=== PATIENT | male | born 1940 | race Caucasian/White ===

== ENCOUNTER 2023-04-09 16:14 | Inpatient (IN) ==
--- NOTE | 2023-04-09 16:37 | Emergency Department Note ---
Impression & Plan Heart block, Elevated troponin I level ED Provider Note NAME: CRISTÓBAL STEVENS AGE: 83 SEX: M : 1940 ARRIVES VIA: Ambulance INFORMANT: Patient, ED PROVIDER(S): Clifton Rich DO CHIEF COMPLAINT: Dizziness HPI: The patient is an 83-year-old male who presented to the emergency department by ambulance from the [facility]. The patient went there for his acupuncture. He was noted to have a low pulse rate. They did a EKG at the office and found him to be in a heart block. The patient was sent to the emergency department by ambulance. He has no previous history of heart block. Patient states he has noticed some dizziness and difficulty breathing upon walking. He denies having any lower extremity swelling or chest pain. He denies having any rashes or changes to his medications. ROS: See above HPI for pertinent positives & negatives. A total of 10 systems reviewed and were otherwise negative. PAST MEDICAL HISTORY: See Below PAST SURGICAL HISTORY: See Below FAMILY HISTORY: See Below SOCIAL HISTORY: See Below HOME MEDICATIONS: See Below ALLERGIES: See Below VITALS: See Below PHYSICAL EXAMINATION: GENERAL: Patient is awake alert in no acute distress patient is resting comfortably and showing no signs of anxiety EYES: The conjunctivae are clear. The pupils are round and reactive. EARS, NOSE, MOUTH AND THROAT: The nose is without any evidence of any deformity. NECK: The neck is nontender and supple. RESPIRATORY: Normal respiratory effort is noted there is no evidence of wheezing rhonchi or rales CARDIOVASCULAR: Bradycardic and regular heart sounds were noted auscultation. There is no definite murmur. GASTROINTESTINAL: The abdomen is soft. Abdomen is nontender. MUSCULOSKELETAL/EXTREMITIES: There is no evidence of gross deformity full range of motion is noted in the hips and shoulders. SKIN: There is no obvious evidence of any rash. There are no petechiae, pallor or cyanosis noted. NEUROLOGIC: Patient is awake alert and oriented x3 MEDICAL DECISION MAKING: The patient is an 83-year-old male who presented to the emergency department with asymptomatic bradycardia. The patient presented to the [facility] for acupuncture therapy. He was noted to have bradycardia. In EKG was done and was found to be abnormal. The patient was sent to the emergency department by ambulance. The patient had no chest pain but he did have some weakness and dizziness upon standing. I discussed the patient's laboratory and radiographic studies with him. I discussed his condition with the on-call [facility] hospitalist as well as the on-call [facility] teradata solution architect. The patient may require further workup including echocardiogram as well as possible consideration for pacemaker placement. Triage Nursing notes reviewed. Prior medical records reviewed Vital Signs: reviewed and remarkable for bradycardia. Differential diagnosis: Infection, dehydration, metabolic abnormality, hypo/hyperglycemia, electrolyte disturbance, anemia, hypoxia, cardiac sources, intracerebral event, toxicologic, neurologic, as well as other pathologies. ER treatment provided: See below Diagnostics interpreted by me: ECG: EKG was obtained in the emergency department. My interpretation is complete heart block at 42 bpm. Right bundle branch block pattern was noted. This compares similar to the EKG obtained [facility]. [facility] from the [facility] was reviewed. My interpretation is complete heart block at 42 bpm. A right bundle branch block pattern was noted. PVCs. No previous tracing was available. Cardiac Monitoring: An order was placed for continuous cardiac monitoring. The monitor shows a rate of 43 bpm with heart block. Laboratory studies: As stated above and show below. Imaging studies: See below. Radiographic imaging was reviewed by myself Consultation(s): I discussed this case with Dr Wright I discussed this case with Dr Padron ED COURSE: Transcutaneous pacer pads were attached in the crash cart was placed at the patient's bedside. Procedures: none Critical Care: I have personally spent greater than 45 minutes of critical care time in the direct management of this patient. This includes bedside care, interpretation of diagnostic studies, and testing, discussion with consultants, patient, and family members, and other required patient management activities. This 45 minutes is in excess of all separately billable procedures. Past Med/Surg History Medical History Low back pain Osteoporosis HTN (hypertension), benign BPH (benign prostatic hyperplasia) Cystitis SBO (small bowel obstruction) Surgical History Status post laser lithotripsy of ureteral calculus H/O inguinal hernia repair Family History Mother Diabetes Father Cancer Sister Coronary heart disease Social History (Reviewed 04/09/23 @ 21:12 by INDY Leyva Smoking Status: Former smoker Tobacco Type: Cigarettes Smoking End Date: 1970; Do You Dip or Chew Tobacco: No; Hx Alcohol Use: No Hx Substance Use: No Preferred Language: German Communication Ability: Effective 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 Beliefs That Will Affect Care: None Current Living Situation: Significant Other Feels Safe at Home: Yes Assistive Devices: Glasses and Hearing Aid - Bilateral Assistive Devices Comment: partials upper and lower Allergies Allergies Allergy/AdvReac Type Severity Reaction Status Date / Time No Known Allergies Allergy Verified 04/09/23 17:38 Home Meds Home Medications Medication Instructions Recorded Confirmed cholecalciferol (vitamin D3) 25 25 mcg PO DAILY 04/09/23 04/09/23 mcg (1,000 unit) capsule (Vitamin D3) diclofenac sodium 1 % topical gel 2 g topical DIRECTED PRN Pain 04/09/23 04/09/23 ferrous sulfate 325 mg (65 mg 325 mg PO DAILY 04/09/23 04/09/23 iron) tablet finasteride 5 mg tablet 5 mg PO DAILY 04/09/23 04/09/23 folic acid 1 mg tablet 1 mg PO DAILY 04/09/23 04/09/23 lidocaine 5 % topical ointment 1 applic topical DIRECTED PRN 04/09/23 04/09/23 Pain lidocaine 5 % topical patch 1 patch transdermal DAILY PRN Pain 04/09/23 04/09/23 oxybutynin chloride 15 mg 15 mg PO DAILY 04/09/23 04/09/23 tablet,extended release 24 hr potassium citrate 10 mEq (1,080 10 meq PO DAILY 04/09/23 04/09/23 mg) tablet,extended release tamsulosin 0.4 mg capsule 0.4 mg PO DAILY 04/09/23 04/09/23 Results & Data (ED) Vital Signs Vital Signs - 24 hr 04/09/23 16:55 04/09/23 16:57 04/09/23 17:00 Temperature 36.8 C Temperature Source Oral Pulse Rate 42 L 40 L 42 L Pulse Rate from SpO2 Sensor 41 L Respiratory Rate 14 16 Respiratory Effort / Characteristics Non-Labored Spontaneous Respiratory Depth Normal Blood Pressure 147/76 H 147/76 H Blood Pressure Mean 99 99 Pulse Oximetry 97 98 Oxygen Delivery Method Room Air Sepsis Recent Fever Within 48 Hours No Sepsis New/Unexplained Change in Mental Status No Sepsis Action Taken by Nursing No Action Required 04/09/23 17:00 Temperature Temperature Source Pulse Rate 41 L Pulse Rate from SpO2 Sensor 42 L Respiratory Rate 24 Respiratory Effort / Characteristics Respiratory Depth Blood Pressure Blood Pressure Mean Pulse Oximetry 97 Oxygen Delivery Method Sepsis Recent Fever Within 48 Hours Sepsis New/Unexplained Change in Mental Status Sepsis Action Taken by Group Home Medications Current Medication List: was personally reviewed by me Laboratory Data Attestation: I reviewed the patient's lab results. 04/09/23 16:47 04/09/23 16:47 Lab Results 04/09/23 Range/Units 16:47 WBC 7.41 (4.8-10.8) K/ul RBC 3.61 L (4.70-6.10) M/uL Hgb 11.6 L (14.0-18.0) g/dl Hct 36.1 L (42.0-52.0) % MCV 100.0 (80.0-100.0) fL MCH 32.1 (25.0-34.0) pg MCHC 32.1 (32.0-36.0) g/dL RDW Std Deviation 50.1 H (36.4-46.3) fL RDW Coeff of Ana María 13.4 (11.5-14.5) % Plt Count 116 L (130-400) K/uL MPV 11.1 (9.4-12.4) fL Immature Gran % (Auto) 0.4 % Neut % (Auto) 77.0 % Lymph % (Auto) 10.1 % [place] % (Auto) 9.9 % Eos % (Auto) 1.9 % Baso % (Auto) 0.7 % Neut # (Auto) 5.71 (1.40-6.50) K/uL Lymph # (Auto) 0.75 L (1.20-3.40) K/uL [place] # (Auto) 0.73 H (0.11-0.59) K/uL Eos # (Auto) 0.14 (0.00-0.50) K/uL Baso # (Auto) 0.05 (0.00-0.20) K/uL Immature Gran # (Auto) 0.03 (0.01-0.20) K/uL PT 10.9 (9.0-12.0) Seconds INR 1.0 (0.9-1.1) APTT 25 (21-31) Seconds PTT Ratio 0.9 Sodium 139 (136-145) mmol/L Potassium 4.1 (3.5-5.1) mmol/L Chloride 108 H (98-107) mmol/L Carbon Dioxide 26 (21-32) mmol/L Anion Gap 5 (3-11) BUN 32 H (6-23) mg/dl Creatinine 1.43 H (0.6-1.4) mg/dl Est Cr Clr Drug Dosing 38.4 ml/min Est GFR ( Amer) 52.1 ml/min Est GFR (Non-Af Amer) 45.0 ml/min BUN/Creatinine Ratio 22.4 H (10-20) Glucose 115 H (70-99(Fasting)) mg/dl Calcium 9.4 (8.6-10.3) mg/dl Magnesium 1.9 (1.7-2.4) mg/dl Total Bilirubin 0.5 (0.2-1.0) mg/dl AST 19 (13-39) U/L ALT 15 (7-52) U/L Alkaline Phosphatase 67 (34-104) U/L Troponin I High Sens 231.6 H* (0-20) pg/ml Total Protein 6.8 (6.0-8.3) gm/dl Albumin 4.0 (3.4-5.0) gm/dl Globulin 2.8 (2.5-4.0) gm/dl Albumin/Globulin Ratio 1.4 (0.9-2) TSH 2.912 (0.300-4.500) uIu/ml Lyme Disease Screen Negative (Negative) Imaging Data Attestation: I personally reviewed and interpreted this imaging study as follows: My Impression: 1 view chest x-ray was obtained in the emergency department. My interpretation is no free air or definite infiltrate, final report below. Radiologist's Impression: Chest X-Ray 04/09/23 16:35 SINGLE VIEW CHEST CLINICAL HISTORY: Dysrhythmia FINDINGS: An AP, portable, upright chest radiograph is obtained. No prior studies are available for comparison at the time of dictation. The heart is enlarged and noting atherosclerotic calcification of the thoracic aorta. The pulmonary vasculature is noncongested. Nonspecific interstitial thickening is likely chronic. Foci of parenchymal scarring are seen throughout both lungs. There are indeterminant foci of nodularity in the left perihilar lung and left upper lobe. No large pleural effusion or pneumothorax is seen. The skeletal structures are osteopenic. The bony thorax is grossly intact. IMPRESSION: 1. Cardiomegaly without radiographic evidence of congestive failure. 2. Indeterminate nodular airspace opacities in the left upper lung are nonspecific. This could represent scarring/fibrosis, a mild pneumonitis, or possibly an underlying pulmonary lesion. Clinical correlation will be required. Follow-up with a dedicated chest CT in several weeks time is recommended for reassessment. ACT 112: Positive. There are findings on this exam that require communication between the performing entity and the patient following Patient Test Result Information Act ([place] Act 112) guidelines. Electronically signed by: Paul Guerrero M.D. 04/09/2023 5:07 PM Discharge Plan Visit Data Chief Complaint: Bradycardia Stated Complaint: BRADYCARDIA ED Provider: Clifton Rich Discharge Problem: Heart block, Elevated troponin I level Patient Disposition: Admitted As Inpatient Discharge Instructions Interventions: ED Discharge Assessment Last Done: 04/09/23 17:54
--- NOTE | 2023-04-09 17:09 | XRay Report ---
SINGLE VIEW CHEST CLINICAL HISTORY: Dysrhythmia FINDINGS: An AP, portable, upright chest radiograph is obtained. No prior studies are available for c omparison at the time of dictation. The heart is enlarged and noting atherosclerotic calcification of the thoracic aorta. The pulmonary vasculature is noncongested. Nonspecific interstitial thickening i s likely chronic. Foci of parenchymal scarring are seen throughout both lungs. There are indeterminan t foci of nodularity in the left perihilar lung and left upper lobe. No large pleural effusion or pne umothorax is seen. The skeletal structures are osteopenic. The bony thorax is grossly intact. IMPRESSION: 1. Cardiomegaly without radiographic evidence of congestive failure. 2. Indeterminate nodular airspace opacities in the left upper lung are nonspecific. This could repres ent scarring/fibrosis, a mild pneumonitis, or possibly an underlying pulmonary lesion. Clinical corre lation will be required. Follow-up with a dedicated chest CT in several weeks time is recommended for reassessment. ACT 112: Positive. There are findings on this exam that require communication between the performing entity and the patient following Patient Test Result Information Act ([place] Act 112) guidelines. Electronically signed by: Paul Guerrero M.D. 04/09/2023 5:07 PM
[2023-04-09 17:12] LABS: Basophils # (auto) 0.05 K/uL (0.00-0.20); Basophils % (auto) 0.7 %; Eosinophils # (auto) 0.14 K/uL (0.00-0.50); Eosinophils % (auto) 1.9 %; Hematocrit (blood only) 36.1 % (42.0-52.0); Hemoglobin 11.6 g/dl (14.0-18.0); Immature Granulocytes # (auto) 0.03 K/uL (0.01-0.20); Immature Granulocytes % (auto) 0.4 %; Lymphocytes # (auto) 0.75 K/uL (1.20-3.40); Lymphocytes % (auto) 10.1 %; Mean Corpuscular Hemoglobin 32.1 pg (25.0-34.0); Mean Corpuscular Hgb Conc 32.1 g/dL (32.0-36.0); Mean Platelet Volume 11.1 fL (9.4-12.4); Monocytes # (auto) 0.73 K/uL (0.11-0.59); Monocytes % (auto) 9.9 %; Neutrophils # (auto) 5.71 K/uL (1.40-6.50); Platelet Count 116 K/uL (130-400); RDW Coefficient of Variation 13.4 % (11.5-14.5); RDW Standard Deviation 50.1 fL (36.4-46.3); Red Blood Count 3.61 M/uL (4.70-6.10); White Blood Count 7.41 K/ul (4.8-10.8)
[2023-04-09] MEDS ORDERED: POLYETHYLENE (MIRALAX) 17 GM PACK PO PRN (17:28)
[2023-04-09 17:30] LABS: Albumin Globulin Ratio 1.4 (0.9-2); BUN Creatinine Ratio 22.4 (10-20); Bilirubin,Total 0.5 mg/dl (0.2-1.0); Calcium 9.4 mg/dl (8.6-10.3); Creatinine Clr Calc Pharmacy 38.4 ml/min; Est GFR (African American) 52.1 ml/min; Globulin 2.8 gm/dl (2.5-4.0); Magnesium 1.9 mg/dl (1.7-2.4); Potassium 4.1 mmol/L (3.5-5.1); Total Protein 6.8 gm/dl (6.0-8.3)
[2023-04-09 17:36] LABS: Troponin I High Sensitivity 231.6 pg/ml (0-20)
[2023-04-09 17:38] LABS: Partial Thromboplastin Ratio 0.9; Partial Thromboplastin Time 25 Seconds (21-31); Prothrombin Time 10.9 Seconds (9.0-12.0)
[2023-04-09] MEDS ORDERED: Patient's ALLERGY Info needs ENTERED STA (17:38)
[2023-04-09 17:43] LABS: Thyroid Stimulating Hormone 2.912 uIu/ml (0.300-4.500)
--- NOTE | 2023-04-09 17:46 | History & Physical Report ---
Date of Service April 09, 2023 Assessment & Plan (1) Heart block: Plan: - reports dizziness, dyspnea on exertion/ walking - complete heart block on ECG - Lyme panel - negative - pacer pads, atropine at bedside - telemetry - cardiology consulted, poss. PPM tmrw - NPO after MN (2) HTN (hypertension), benign: Plan: - not on any medications at this time - monitor BP (3) BPH (benign prostatic hyperplasia): Plan: - on flomax, finasteride, oxybutynin (4) Low back pain: Plan: - cont. lidocain patch, tylenol - just had acupuncture treatment Iron def. anemia - current Hgb 11.6 - on iron supplement Abnormal CXR - no cough, fever, or any resp. symptoms at this time - pt reports having pna and being in ICU in 2017 after his urologic procedure - follows w/ pulmonary med. as outpt History of Present Illness Chief Complaint: heart block, dizziness Primary Care Provider: [facility] 83 yo M with hx of HTN, BPH, renal calculi, osteoporosis, low back pain, hx of SBO, and cystitis, now presents from [facility] where he was found to be in complete heart block. Patient was seen in [facility] for acupuncture, for his chronic low back pain today. He reports that for the past week, has been having dizziness and shortness of breath on exertion when walking or going up the stairs. He says he is very active, and walks regularly. He would get dizzy and flushed several times, and so he would have to stop and rest, then it would resolve. He says he never experienced any chest pain however after walking up the stairs he would feel some fullness in his chest. He felt that it was possibly from his anemia, as he is known to have iron deficiency anemia. He did contact his primary care physician, and actually obtained blood work yesterday. He has not heard back yet from them regarding results. When he was at the [facility] for acupuncture, he was noted that his pulse was low, and therefore ECG was obtained there, and concerning for heart block. Patient was then sent by ambulance to the ER at [facility]. Currently patient is lying in bed, in no acute distress. Overall he feels well. Denies any chest pain palpitations, feeling dizzy or short of breath. Denies any recent illness, denies fevers chills, denies any cough. Denies abdominal pain nausea vomiting, or headache. Allergies Allergy/AdvReac Type Severity Reaction Status Date / Time No Known Allergies Allergy Verified 04/09/23 17:38 Home Medications Medication Instructions Recorded Confirmed Type cholecalciferol (vitamin D3) 25 25 mcg PO DAILY 04/09/23 04/09/23 History mcg (1,000 unit) capsule (Vitamin D3) diclofenac sodium 1 % topical gel 2 g topical DIRECTED PRN Pain 04/09/23 04/09/23 History ferrous sulfate 325 mg (65 mg 325 mg PO DAILY 04/09/23 04/09/23 History iron) tablet finasteride 5 mg tablet 5 mg PO DAILY 04/09/23 04/09/23 History folic acid 1 mg tablet 1 mg PO DAILY 04/09/23 04/09/23 History lidocaine 5 % topical ointment 1 applic topical DIRECTED PRN 04/09/23 04/09/23 History Pain lidocaine 5 % topical patch 1 patch transdermal DAILY PRN Pain 04/09/23 04/09/23 History oxybutynin chloride 15 mg 15 mg PO DAILY 04/09/23 04/09/23 History tablet,extended release 24 hr potassium citrate 10 mEq (1,080 10 meq PO DAILY 04/09/23 04/09/23 History mg) tablet,extended release tamsulosin 0.4 mg capsule 0.4 mg PO DAILY 04/09/23 04/09/23 History Past Med/Surg History Medical History (Updated 04/09/23 @ 17:41 by Kaden Padron MD) Low back pain Osteoporosis HTN (hypertension), benign BPH (benign prostatic hyperplasia) Cystitis SBO (small bowel obstruction) Surgical History (Updated 04/09/23 @ 17:37 by Kaden Padron MD) Status post laser lithotripsy of ureteral calculus H/O inguinal hernia repair Family History (Updated 04/09/23 @ 17:39 by Kaden Padron MD) Mother Diabetes Father Cancer Sister Coronary heart disease Social History Smoking Status: Never smoker Feels Safe at Home: Yes Review of Systems Review of Systems: All systems reviewed & are unremarkable except as noted in Subjective Physical Exam Constitutional: WD/WN, vitals as above Eyes: PERRL, conjunctivae normal, anicteric sclerae ENMT: external ear and nose normal, oropharynx normal Neck: trachea midline, no thyromegaly Respiratory: Auscultation: + rhonchi; no wheezes Cardiovascular: bradycardic, no murmurs Chest (Breasts): Chest: normal inspection of chest Additional Comments: pacer pads applied Gastrointestinal (Abdomen): normal bowel sounds, soft, nontender, no hepatosplenomegaly Musculoskeletal: no cyanosis or clubbing, extremities motor strength 5/5 Skin: no rashes, warm and dry Neurologic: PERRL, EOMI, accommodation nl, no face palsy, no dysarthria Psychiatric: A+Ox3, euthymic affect Lymphatic: no lymphedema Results & Data Results & Data Vital Signs (Past 12 Hours) Vital Signs Temp Pulse Resp BP Pulse Ox O2 Del Method 04/09/23 17:00 41 L 24 97 04/09/23 17:00 36.8 C 42 L 16 147/76 H 98 Room Air 04/09/23 16:57 40 L 04/09/23 16:55 42 L 14 147/76 H 97 Laboratory Results 04/09/23 Range/Units 16:47 WBC 7.41 (4.8-10.8) K/ul RBC 3.61 L (4.70-6.10) M/uL Hgb 11.6 L (14.0-18.0) g/dl Hct 36.1 L (42.0-52.0) % MCV 100.0 (80.0-100.0) fL MCH 32.1 (25.0-34.0) pg MCHC 32.1 (32.0-36.0) g/dL RDW Std Deviation 50.1 H (36.4-46.3) fL RDW Coeff of Ana María 13.4 (11.5-14.5) % Plt Count 116 L (130-400) K/uL MPV 11.1 (9.4-12.4) fL Immature Gran % (Auto) 0.4 % Neut % (Auto) 77.0 % Lymph % (Auto) 10.1 % [place] % (Auto) 9.9 % Eos % (Auto) 1.9 % Baso % (Auto) 0.7 % Neut # (Auto) 5.71 (1.40-6.50) K/uL Lymph # (Auto) 0.75 L (1.20-3.40) K/uL [place] # (Auto) 0.73 H (0.11-0.59) K/uL Eos # (Auto) 0.14 (0.00-0.50) K/uL Baso # (Auto) 0.05 (0.00-0.20) K/uL Immature Gran # (Auto) 0.03 (0.01-0.20) K/uL PT 10.9 (9.0-12.0) Seconds INR 1.0 (0.9-1.1) APTT 25 (21-31) Seconds PTT Ratio 0.9 Sodium 139 (136-145) mmol/L Potassium 4.1 (3.5-5.1) mmol/L Chloride 108 H (98-107) mmol/L Carbon Dioxide 26 (21-32) mmol/L Anion Gap 5 (3-11) BUN 32 H (6-23) mg/dl Creatinine 1.43 H (0.6-1.4) mg/dl Est Cr Clr Drug Dosing 38.4 ml/min Est GFR ( Amer) 52.1 ml/min Est GFR (Non-Af Amer) 45.0 ml/min BUN/Creatinine Ratio 22.4 H (10-20) Glucose 115 H (70-99(Fasting)) mg/dl Calcium 9.4 (8.6-10.3) mg/dl Magnesium 1.9 (1.7-2.4) mg/dl Total Bilirubin 0.5 (0.2-1.0) mg/dl AST 19 (13-39) U/L ALT 15 (7-52) U/L Alkaline Phosphatase 67 (34-104) U/L Troponin I High Sens 231.6 H* (0-20) pg/ml Total Protein 6.8 (6.0-8.3) gm/dl Albumin 4.0 (3.4-5.0) gm/dl Globulin 2.8 (2.5-4.0) gm/dl Albumin/Globulin Ratio 1.4 (0.9-2) TSH Pending Lyme Disease Screen Pending Diagnostic Findings CXR MPRESSION: 1. Cardiomegaly without radiographic evidence of congestive failure. 2. Indeterminate nodular airspace opacities in the left upper lung are nonspecific. This could represent scarring/fibrosis, a mild pneumonitis, or possibly an underlying pulmonary lesion. Clinical correlation will be required. Follow-up with a dedicated chest CT in several weeks time is recommended for reassessment. ECG - complete heart block, at 42bpm Code Status & VTE Plan VTE Prophylaxis Plan VTE Prophylaxis will be ordered: Yes
[2023-04-09] MEDS ORDERED: LIDOCAINE 5% 1 PATCH TD PRN (19:12)
--- NOTE | 2023-04-09 21:06 | Cardiology Consultation ---
Date of Consultation April 09, 2023 Assessment & Plan (1) Third degree heart block by electrocardiogram: (2) HTN (hypertension), benign: (3) Renal insufficiency: Plan Patient is hemodynamically stable. Recommend permanent pacemaker implantation in AM. Risks discussed. Patient agreeable. Temporary transvenous pacemaker not necessary at this time. Transcutaneous pacer pads to bedside. 2D transthoracic echocardiogram in AM. NPO except medications after midnight. I spent a total of 55 minutes on the date of service in preparation, delivery, and documentation of the care provided to this patient, excluding any time spent in the performance of separately billed services. History of Present Illness Reason for Consultation: Heart block Requesting Physician: Dr. Padron Attending Physician: Kaden Padron MD History of Present Illness 83 year old male presented to [place] clinic today for acupuncture for treatment of chronic low back pain. Sent to ER because of bradycardia. Reports dizziness beginning 1 week ago while walking outdoors. Symptoms relieved with rest. +SOB and dizziness when climbing stairs at home. Denies resting symptoms. No orthopnea, PND, or edema. No history of CAD, CHF, dysrhythmia, DM, or rheumatic fever as a child. Generally a very active person. Walking regularly for exercise until symptoms began last week. Allergies Allergy/AdvReac Type Severity Reaction Status Date / Time No Known Allergies Allergy Verified 04/09/23 17:38 Home Medications Medication Instructions Recorded Confirmed Type cholecalciferol (vitamin D3) 25 25 mcg PO DAILY 04/09/23 04/09/23 History mcg (1,000 unit) capsule (Vitamin D3) diclofenac sodium 1 % topical gel 2 g topical DIRECTED PRN Pain 04/09/23 04/09/23 History ferrous sulfate 325 mg (65 mg 325 mg PO DAILY 04/09/23 04/09/23 History iron) tablet finasteride 5 mg tablet 5 mg PO DAILY 04/09/23 04/09/23 History folic acid 1 mg tablet 1 mg PO DAILY 04/09/23 04/09/23 History lidocaine 5 % topical ointment 1 applic topical DIRECTED PRN 04/09/23 04/09/23 History Pain lidocaine 5 % topical patch 1 patch transdermal DAILY PRN Pain 04/09/23 04/09/23 History oxybutynin chloride 15 mg 15 mg PO DAILY 04/09/23 04/09/23 History tablet,extended release 24 hr potassium citrate 10 mEq (1,080 10 meq PO DAILY 04/09/23 04/09/23 History mg) tablet,extended release tamsulosin 0.4 mg capsule 0.4 mg PO DAILY 04/09/23 04/09/23 History Patient History Medical History Low back pain Osteoporosis HTN (hypertension), benign BPH (benign prostatic hyperplasia) Cystitis SBO (small bowel obstruction) Surgical History Status post laser lithotripsy of ureteral calculus H/O inguinal hernia repair Family History Mother Diabetes Father Cancer Sister Coronary heart disease Social History Smoking Status: Former smoker Tobacco Type: Cigarettes Smoking End Date: 1970; Do You Dip or Chew Tobacco: No; Hx Alcohol Use: No Hx Substance Use: No Preferred Language: Slovak Communication Ability: Effective Market Development Director Required: No Beliefs That Will Affect Care: None Current Living Situation: Significant Other Feels Safe at Home: Yes Assistive Devices: Glasses and Hearing Aid - Bilateral Assistive Devices Comment: partials upper and lower Review of Systems Review of Systems: All systems reviewed & are unremarkable except as noted in Subjective Physical Exam Constitutional: well nourished; no acute distress Respiratory: normal respiratory effort; no respiratory distress and no labored breathing Auscultation: lungs clear to auscultation bilaterally; no crackles, no rales, no rhonchi and no wheezes Cardiovascular: Rate/Rhythm: regular rate and regular rhythm Heart Sounds: normal S1, normal S2 and + murmur (2/6 systolic murmur at LSB) Vessels: radial pulses present; no JVD and no carotid bruit Extremities: no edema Gastrointestinal (Abdomen): Inspection/Auscultation: abdomen normal to inspection and normal bowel sounds; abdomen not distended Percussion/Palpation: abdomen soft; abdomen nontender, no guarding and abdomen not rigid Neurologic: CN's II-XI intact bilaterally and moves all extremities; no focal motor deficits Results & Data Vital Signs (Past 12 Hours) Vital Signs Temp Pulse Resp BP Pulse Ox O2 Del Method 04/09/23 19:30 44 L 22 139/64 96 04/09/23 19:00 41 L 22 97 04/09/23 19:00 145/66 H 04/09/23 18:30 43 L 16 95 04/09/23 18:01 40 L 23 97 04/09/23 18:01 153/62 H 04/09/23 18:00 43 L 12 98 04/09/23 17:31 48 L 12 04/09/23 17:31 157/71 H 04/09/23 17:30 45 L 14 04/09/23 17:28 95 Room Air 04/09/23 17:00 41 L 24 97 04/09/23 17:00 36.8 C 42 L 16 147/76 H 98 Room Air 04/09/23 16:57 40 L 04/09/23 16:55 42 L 14 147/76 H 97 Laboratory Results Cardiac Enzymes 04/09/23 04/09/23 Range/Units 16:47 18:50 AST 19 (13-39) U/L Troponin I High Sens 231.6 H* 253.1 H* (0-20) pg/ml Coagulation 04/09/23 Range/Units 16:47 PT 10.9 (9.0-12.0) Seconds APTT 25 (21-31) Seconds CBC 04/09/23 Range/Units 16:47 WBC 7.41 (4.8-10.8) K/ul RBC 3.61 L (4.70-6.10) M/uL Hgb 11.6 L (14.0-18.0) g/dl Hct 36.1 L (42.0-52.0) % Plt Count 116 L (130-400) K/uL Neut # (Auto) 5.71 (1.40-6.50) K/uL Lymph # (Auto) 0.75 L (1.20-3.40) K/uL [place] # (Auto) 0.73 H (0.11-0.59) K/uL Eos # (Auto) 0.14 (0.00-0.50) K/uL Baso # (Auto) 0.05 (0.00-0.20) K/uL Comprehensive Metabolic Panel 04/09/23 Range/Units 16:47 Sodium 139 (136-145) mmol/L Potassium 4.1 (3.5-5.1) mmol/L Chloride 108 H (98-107) mmol/L Carbon Dioxide 26 (21-32) mmol/L BUN 32 H (6-23) mg/dl Creatinine 1.43 H (0.6-1.4) mg/dl Glucose 115 H (70-99(Fasting)) mg/dl Calcium 9.4 (8.6-10.3) mg/dl AST 19 (13-39) U/L ALT 15 (7-52) U/L Alkaline Phosphatase 67 (34-104) U/L Total Protein 6.8 (6.0-8.3) gm/dl Albumin 4.0 (3.4-5.0) gm/dl Intake and Output 04/09/23 04/09/23 04/09/23 06:59 14:59 22:59 Other: Weight 69.4 kg Weight Measurement Method Built in [facility] Patient Weight 04/10/23 06:59 Weight 69.4 kg
[2023-04-10 04:37] LABS: BUN Creatinine Ratio 22.1 (10-20); Calcium 9.1 mg/dl (8.6-10.3); Creatinine Clr Calc Pharmacy 40.4 ml/min; Est GFR (African American) 55.4 ml/min; Est GFR (Non-African American) 47.8 ml/min; Magnesium 1.9 mg/dl (1.7-2.4); Potassium 4.3 mmol/L (3.5-5.1)
[2023-04-10 04:45] LABS: Hematocrit (blood only) 34.4 % (42.0-52.0); Hemoglobin 10.8 g/dl (14.0-18.0); Mean Corpuscular Hemoglobin 32.1 pg (25.0-34.0); Mean Corpuscular Hgb Conc 31.4 g/dL (32.0-36.0); Mean Corpuscular Volume 102.4 fL (80.0-100.0); Mean Platelet Volume 11.2 fL (9.4-12.4); Platelet Count 98 K/uL (130-400); Platelet Estimate Decreased (Normal); RDW Coefficient of Variation 13.5 % (11.5-14.5); RDW Standard Deviation 50.5 fL (36.4-46.3); Red Blood Count 3.36 M/uL (4.70-6.10); White Blood Count 6.71 K/ul (4.8-10.8)
--- NOTE | 2023-04-10 07:46 | History & Physical Bridge Note ---
Date of Service April 10, 2023 History & Physical Bridge Note I have examined the patient, reviewed the History & Physical and in the interval since the performance of the History & Physical I have noted the following changes of clinical significance: no changes noted; pt with CHB for a dual chamber pacemaker; i explained the risks and benefits of the procedure-he expressed an understanding and consents signed
--- NOTE | 2023-04-10 07:46 | Hospitalist Progress Note ---
Date of Service April 10, 2023 Assessment & Plan (1) Heart block: Plan: - reports dizziness, dyspnea on exertion/ walking - complete heart block on ECG - Lyme panel - negative - Cardiology consulted, s/p PPM today 83-year-old male with symptomatic third-degree AV block status post dual-chamber pacemaker implantation today. Recovering as expected without pneumothorax per chest x-ray. Postprocedural activity restrictions as per electrophysiology. Patient understands he may not drive today. Review resting 2D transthoracic echocardiogram when available. No further inpatient cardiac testing or intervention recommended at this time. Wound check and pacemaker interrogation in 1 week at [facility]. Follow-up with primary care or pulmonary medicine regarding pulmonary nodules. No further inpatient cardiac testing or intervention recommended at this time. Patient may be discharged home from cardiovascular perspective. (2) HTN (hypertension), benign: Plan: - not on any medications at this time - monitor BP (3) BPH (benign prostatic hyperplasia): Plan: - on flomax, finasteride, oxybutynin (4) Low back pain: Plan: - cont. lidocain patch, tylenol - just had acupuncture treatment Iron def. anemia - current Hgb 11.6 - on iron supplement Abnormal CXR - no cough, fever, or any resp. symptoms at this time - pt reports having pna and being in ICU in 2017 after his urologic procedure - follows w/ pulmonary med. as outpt - recommend follow up Admission and Anticipated Discharge Date Admission Date: April 09, 2023 Subjective Pt seen in follow up of heart block, s/p pacemaker placement this AM Patient is currently sitting up in chair, in no acute distress. His girlfriend is present at the bedside. He was just walking in the hallways with the nurse. Denies any chest pain shortness of breath palpitations or dizziness. He is feeling well. But the he has some shoulder pain from the procedure. Review of Systems Review of Systems: All systems reviewed & are unremarkable except as noted in Subjective Physical Exam Physical Exam: Constitutional: WD/WN, vitals as a ruperto Eyes: PERRL, conjunctiva e normal, anicteri c sclerae ENMT: external ear and n ose normal, oropha rynx normal Neck: trachea midline, n o thyromegaly Respiratory: Auscultation: + rh onchi; no wheezes Cardiovascular: bradycardic, no m urmurs Chest (Breasts): Chest: normal insp ection of chest A dditional Comments : s/p PPM placeme nt today Gastrointestinal ( Abdomen): normal bowel sound s, soft, nontender Musculoskeletal: no cyanosis or clu bbing, extremities motor strength 5/ 5 Skin: no rashes, warm an d dry Neurologic: PERRL, EOMI, no fa ce palsy, no dysar thria Psychiatric: A+Ox3, euthymic af fect Lymphatic: no lymphedema Results & Data Results & Data Vital Signs (Past 12 Hours) Vital Signs Temp Pulse Resp BP Pulse Ox O2 Del Method 04/10/23 07:25 43 L 18 124/66 96 Room Air 04/09/23 21:21 36.6 C 43 L 16 131/78 91 Room Air Laboratory Results 04/10/23 04/09/23 04/09/23 Range/Units 03:39 Unknown 18:50 WBC 6.71 (4.8-10.8) K/ul RBC 3.36 L (4.70-6.10) M/uL Hgb 10.8 L (14.0-18.0) g/dl Hct 34.4 L (42.0-52.0) % MCV 102.4 H (80.0-100.0) fL MCH 32.1 (25.0-34.0) pg MCHC 31.4 L (32.0-36.0) g/dL RDW Std Deviation 50.5 H (36.4-46.3) fL RDW Coeff of Ana María 13.5 (11.5-14.5) % Plt Count 98 L (130-400) K/uL MPV 11.2 (9.4-12.4) fL Immature Gran % (Auto) % Neut % (Auto) % Lymph % (Auto) % [place] % (Auto) % Eos % (Auto) % Baso % (Auto) % Neut # (Auto) (1.40-6.50) K/uL Lymph # (Auto) (1.20-3.40) K/uL [place] # (Auto) (0.11-0.59) K/uL Eos # (Auto) (0.00-0.50) K/uL Baso # (Auto) (0.00-0.20) K/uL Immature Gran # (Auto) (0.01-0.20) K/uL Platelet Estimate Decreased L (Normal) PT (9.0-12.0) Seconds INR (0.9-1.1) APTT (21-31) Seconds PTT Ratio Sodium 140 (136-145) mmol/L Potassium 4.3 (3.5-5.1) mmol/L Chloride 109 H (98-107) mmol/L Carbon Dioxide 25 (21-32) mmol/L Anion Gap 6 (3-11) BUN 30 H (6-23) mg/dl Creatinine 1.36 (0.6-1.4) mg/dl Est Cr Clr Drug Dosing 40.4 ml/min Est GFR ( Amer) 55.4 ml/min Est GFR (Non-Af Amer) 47.8 ml/min BUN/Creatinine Ratio 22.1 H (10-20) Glucose 103 H (70-99(Fasting)) mg/dl Calcium 9.1 (8.6-10.3) mg/dl Phosphorus 4.0 (2.5-4.9) mg/dl Magnesium 1.9 (1.7-2.4) mg/dl Total Bilirubin (0.2-1.0) mg/dl AST (13-39) U/L ALT (7-52) U/L Alkaline Phosphatase (34-104) U/L Troponin I High Sens 253.1 H* (0-20) pg/ml Total Protein (6.0-8.3) gm/dl Albumin (3.4-5.0) gm/dl Globulin (2.5-4.0) gm/dl Albumin/Globulin Ratio (0.9-2) TSH (0.300-4.500) uIu/ml Nasal Screen MRSA (PCR) Negative (Negative) Lyme Disease Screen (Negative) 04/09/23 Range/Units 16:47 WBC 7.41 (4.8-10.8) K/ul RBC 3.61 L (4.70-6.10) M/uL Hgb 11.6 L (14.0-18.0) g/dl Hct 36.1 L (42.0-52.0) % MCV 100.0 (80.0-100.0) fL MCH 32.1 (25.0-34.0) pg MCHC 32.1 (32.0-36.0) g/dL RDW Std Deviation 50.1 H (36.4-46.3) fL RDW Coeff of Ana María 13.4 (11.5-14.5) % Plt Count 116 L (130-400) K/uL MPV 11.1 (9.4-12.4) fL Immature Gran % (Auto) 0.4 % Neut % (Auto) 77.0 % Lymph % (Auto) 10.1 % [place] % (Auto) 9.9 % Eos % (Auto) 1.9 % Baso % (Auto) 0.7 % Neut # (Auto) 5.71 (1.40-6.50) K/uL Lymph # (Auto) 0.75 L (1.20-3.40) K/uL [place] # (Auto) 0.73 H (0.11-0.59) K/uL Eos # (Auto) 0.14 (0.00-0.50) K/uL Baso # (Auto) 0.05 (0.00-0.20) K/uL Immature Gran # (Auto) 0.03 (0.01-0.20) K/uL Platelet Estimate (Normal) PT 10.9 (9.0-12.0) Seconds INR 1.0 (0.9-1.1) APTT 25 (21-31) Seconds PTT Ratio 0.9 Sodium 139 (136-145) mmol/L Potassium 4.1 (3.5-5.1) mmol/L Chloride 108 H (98-107) mmol/L Carbon Dioxide 26 (21-32) mmol/L Anion Gap 5 (3-11) BUN 32 H (6-23) mg/dl Creatinine 1.43 H (0.6-1.4) mg/dl Est Cr Clr Drug Dosing 38.4 ml/min Est GFR ( Amer) 52.1 ml/min Est GFR (Non-Af Amer) 45.0 ml/min BUN/Creatinine Ratio 22.4 H (10-20) Glucose 115 H (70-99(Fasting)) mg/dl Calcium 9.4 (8.6-10.3) mg/dl Phosphorus (2.5-4.9) mg/dl Magnesium 1.9 (1.7-2.4) mg/dl Total Bilirubin 0.5 (0.2-1.0) mg/dl AST 19 (13-39) U/L ALT 15 (7-52) U/L Alkaline Phosphatase 67 (34-104) U/L Troponin I High Sens 231.6 H* (0-20) pg/ml Total Protein 6.8 (6.0-8.3) gm/dl Albumin 4.0 (3.4-5.0) gm/dl Globulin 2.8 (2.5-4.0) gm/dl Albumin/Globulin Ratio 1.4 (0.9-2) TSH 2.912 (0.300-4.500) uIu/ml Nasal Screen MRSA (PCR) (Negative) Lyme Disease Screen Negative (Negative) Medications Administered Current Inpatient Medications Acetaminophen (Acetaminophen 325 Mg Tab) 650 mg PO Q4H PRN PRN Reason: Pain or Fever Stop: 05/09/23 17:27 Finasteride (Finasteride 5 Mg Tab) 5 mg PO DAILY LITA Stop: 05/10/23 08:59 Folic Acid (Folic Acid 1 Mg Tab) 1 mg PO DAILY LITA Stop: 05/10/23 08:59 Lidocaine (Lidocaine 5% 1 Patch) 1 patch TD DAILY PRN PRN Reason: Pain Stop: 05/09/23 19:11 Miscellaneous (Remove Lidoderm Patch) 1 each N/A DAILY@2100 LITA Stop: 05/09/23 20:59 Last Admin: 04/09/23 22:36 Dose: 1 each Oxybutynin Chloride (Oxybutynin Chloride Xl 5 Mg Tabcr) 15 mg PO DAILY LITA Stop: 05/10/23 08:59 Polyethylene Glycol (Polyethylene (Miralax) 17 Gm Pack) 17 gm PO DAILY PRN PRN Reason: Constipation Stop: 05/09/23 17:27
--- NOTE | 2023-04-10 07:47 | Pre Anesthesia Assessment ---
Date of Service April 10, 2023 Pre Sedation Assessment Vital Signs Temp Pulse Pulse Resp BP BP Pulse Ox 04/10/23 07:25 43 L 18 124/66 96 04/09/23 21:21 36.6 C 43 L 16 131/78 91 04/09/23 19:30 44 L 22 139/64 96 04/09/23 19:00 41 L 22 97 04/09/23 19:00 145/66 H 04/09/23 18:30 43 L 16 95 04/09/23 18:01 40 L 23 97 04/09/23 18:01 153/62 H 04/09/23 18:00 43 L 12 98 04/09/23 17:31 48 L 12 04/09/23 17:31 157/71 H 04/09/23 17:30 45 L 14 04/09/23 17:28 95 04/09/23 17:00 41 L 24 97 04/09/23 17:00 36.8 C 42 L 16 147/76 H 98 04/09/23 16:57 40 L 04/09/23 16:55 42 L 14 147/76 H 97 O2 Del Method 04/10/23 07:25 Room Air 04/09/23 21:21 Room Air 04/09/23 19:30 04/09/23 19:00 04/09/23 19:00 04/09/23 18:30 04/09/23 18:01 04/09/23 18:01 04/09/23 18:00 04/09/23 17:31 04/09/23 17:31 04/09/23 17:30 04/09/23 17:28 Room Air 04/09/23 17:00 04/09/23 17:00 Room Air 04/09/23 16:57 04/09/23 16:55 Cardiovascular + bradycardic Respiratory normal respiratory effort, lungs clear to auscultation Pre-Sedation Airway Assessment Smoking Status: Former smoker Hx Sleep Apnea: No Short, Thick Neck: No Thyromental Distance: > or= 3.5 Finger Breadths Oral Cavity: + WNL Mallampati Class: II ASA: ASA2 NPO Status Date of Last Intake of Fluids: 04/09/23 Time of Last Intake of Fluids: 22:00 Date of Last Intake of Solid Food: 04/09/23 Time of Last Intake of Solid Foods: 22:00 Procedure Planning Contraindications for Sedation: none Current Medications Reviewed: Yes Notes The planned sedation has been discussed with the patient. Informed Consent was obtained. I have identified the patient, determined the appropriateness of sedation and have assessed the patient immediately prior to the procedure. All medicine(s) and interventions are by my order.
[2023-04-10] MEDS: WATER, STERILE FOR INJ 10 ML VIAL ONE (09:16)
[2023-04-10] MEDS: VANCOMYCIN HCL 1000MG/20ML VIAL ONE (09:16)
[2023-04-10] MEDS: BUPIVACAINE 0.25% PF 30 ML VIAL ONE (09:16)
[2023-04-10] MEDS: LIDOCAINE 1% LOCAL 20 ML VIAL ONE (09:16)
[2023-04-10] MEDS: MIDAZOLAM HCL 5 MG/ML 1 ML VIAL ONE (09:17)
[2023-04-10] MEDS: fentaNYL citrate PF 100 MCG/2 ML VIAL ONE (09:17)
[2023-04-10] MEDS: NITROGLYCERIN/D5W 100MCG/ML 20ML SYR ONE (09:17)
[2023-04-10] MEDS: ceFAZolin 330 MG/ML 1 GM VIAL ONE (09:17)
[2023-04-10 11:13] LABS: Appearance Urine Clear (Clear); Bacteria Urine Automated Negative (Negative); Bilirubin Urine Negative (Negative); Blood Urine 3+ (Negative); Color Urine Yellow; Epithelial Cell Urine Auto 20-30 /lpf (0-5); Glucose Urine UA Negative (Negative); Ketones Urine Negative (Negative); Leukocyte Esterase Urine 1+ (Negative); Nitrite Urine Negative (Negative); Protein Urine Negative (Negative); RBC Urine Automated >30 /hpf (0-4); Specific Gravity Urine 1.033 (1.000-1.030); Urobilinogen Urine Negative (Negative); WBC Urine Automated >30 /hpf (0-5); pH Urine 5.5 (4.5-7.5)
[2023-04-10] MEDS: FOLIC ACID 1 MG TAB PO SCH (11:23)
[2023-04-10] MEDS: OXYBUTYNIN CHLORIDE XL 5 MG TABCR PO SCH (11:23)
[2023-04-10] MEDS: FINASTERIDE 5 MG TAB PO SCH (11:23)
--- NOTE | 2023-04-10 11:51 | Electrocardiogram Report ---
Test Reason : Blood Pressure : / mmHG Vent. Rate : 042 BPM Atrial Rate : 042 BPM P-R Int : 000 ms QRS Dur : 154 ms QT Int : 470 ms P-R-T Axes : 040 -26 002 degrees QTc Int : 392 ms Normal sinus rhythm with A-V dissociation and Wide QRS rhythm Right bundle branch block Minimal voltage criteria for LVH, may be normal variant ( R in aVL ) Abnormal ECG No previous ECGs available Confirmed by Clifton Narayanan ([id number]) on 04/10/2023 11:51:25 AM Referred By: [facility] Confirmed By:Clifton Narayanan
--- NOTE | 2023-04-10 12:25 | XRay Report ---
SINGLE VIEW CHEST CLINICAL HISTORY: Pacemaker implantation FINDINGS: An AP, portable, upright chest radiograph is compared to study dated 04/09/2023. The examina tion is degraded by portable technique and patient rotation. Surgical clips project over the lower ne ck. A 2-lead cardiac pacemaker has been placed and largely obscures the left upper chest. Leads proje ct over the right atrial appendage and right ventricle. The heart is enlarged and noting atheroscler otic calcification of the thoracic aorta. The pulmonary vasculature is noncongested. Nonspecific inte rstitial thickening is likely chronic. Foci of parenchymal scarring are seen throughout both lungs. T here are indeterminant foci of nodularity in the left perihilar lung and left upper lobe. No large pl eural effusion or pneumothorax is seen. The skeletal structures are osteopenic. The bony thorax is gr ossly intact. IMPRESSION: 1. A 2-lead cardiac pacemaker has been implanted as above. No pneumothorax is identified post procedu re. 2. Cardiomegaly without radiographic evidence of congestive failure. 3. The pacemaker obscures the left upper lobe nodular opacities seen on yesterday's examination. Foll ow-up with a dedicated chest CT in several weeks time is again recommended for reassessment. ACT 112: Negative or not required by law. Electronically signed by: Paul Guerrero M.D. 04/10/2023 12:23 PM
--- NOTE | 2023-04-10 12:58 | Electrocardiogram Report ---
Test Reason : Blood Pressure : / mmHG Vent. Rate : 071 BPM Atrial Rate : 071 BPM P-R Int : 162 ms QRS Dur : 160 ms QT Int : 438 ms P-R-T Axes : 057 124 083 degrees QTc Int : 475 ms Atrial-sensed ventricular-paced rhythm Abnormal ECG When compared with ECG of 10-APR-2023 06:25, Electronic ventricular pacemaker now present Vent. rate has increased BY 24 BPM Confirmed by Jey Sheets ([id number]) on 04/10/2023 12:58:40 PM Referred By: [facility] Confirmed By:Jey Sheets
--- NOTE | 2023-04-10 13:01 | Cardiology Progress Note ---
Date of Service April 10, 2023 Assessment & Plan (1) Third degree heart block by electrocardiogram: (2) Pacemaker: (3) HTN (hypertension), benign: (4) Renal insufficiency: (5) Pulmonary nodule: Plan 83-year-old male with symptomatic third-degree AV block status post dual-chamber pacemaker implantation today. Recovering as expected without pneumothorax per chest x-ray. Postprocedural activity restrictions as per electrophysiology. Patient understands he may not drive today. Review resting 2D transthoracic echocardiogram when available. No further inpatient cardiac testing or intervention recommended at this time. Wound check and pacemaker interrogation in 1 week at [facility]. Follow-up with primary care or pulmonary medicine regarding pulmonary nodules. No further inpatient cardiac testing or intervention recommended at this time. Patient may be discharged home from cardiovascular perspective. Recommendations discussed with hospitalist via [place] text for continuity of care. I spent a total of 30 minutes on the date of service in preparation, delivery, and documentation of the care provided to this patient, excluding any time spent in the performance of separately billed services. Admission and Anticipated Discharge Date Admission Date: April 09, 2023 Subjective Patient seen and examined at the bedside post pacemaker implantation. Feeling well from a cardiovascular perspective. Notes left shoulder soreness. Telemetry reveals atrial sensed ventricular paced rhythm. Denies chest discomfort or heaviness. No shortness of breath, lightheadedness, or dizziness. Chest x-ray without evidence of pneumothorax. Left upper lobe pulmonary nodules noted. Review of Systems Review of Systems: All systems reviewed & are unremarkable except as noted in Subjective Physical Exam Constitutional: well nourished; no acute distress Respiratory: normal respiratory effort; no respiratory distress and no labored breathing Auscultation: lungs clear to auscultation bilaterally; no crackles, no rales, no rhonchi and no wheezes Cardiovascular: Rate/Rhythm: regular rate and regular rhythm Heart Sounds: normal S1, normal S2 and + murmur (2/6 systolic murmur at LSB) Vessels: radial pulses present; no JVD and no carotid bruit Extremities: no edema Gastrointestinal (Abdomen): Inspection/Auscultation: abdomen normal to inspection and normal bowel sounds; abdomen not distended Percussion/Palpation: abdomen soft; abdomen nontender, no guarding and abdomen not rigid Neurologic: CN's II-XI intact bilaterally and moves all extremities; no focal motor deficits Results & Data Vital Signs (Past 12 Hours) Vital Signs Pulse Pulse Resp BP BP Pulse Ox O2 Del Method 04/10/23 11:15 80 22 98 04/10/23 11:15 157/86 H 04/10/23 11:00 72 26 H 98 04/10/23 11:00 148/87 H 04/10/23 10:46 153/86 H 04/10/23 10:46 73 19 96 04/10/23 10:45 73 18 89 L 04/10/23 10:33 74 19 96 04/10/23 10:33 164/87 H 04/10/23 10:30 70 19 04/10/23 09:45 76 20 135/78 94 Room Air 04/10/23 09:40 73 20 146/63 H 94 Room Air 04/10/23 07:25 43 L 18 124/66 96 Room Air Laboratory Results Cardiac Enzymes 04/09/23 04/09/23 Range/Units 16:47 18:50 AST 19 (13-39) U/L Troponin I High Sens 231.6 H* 253.1 H* (0-20) pg/ml Coagulation 04/09/23 Range/Units 16:47 PT 10.9 (9.0-12.0) Seconds APTT 25 (21-31) Seconds CBC 04/09/23 04/10/23 Range/Units 16:47 03:39 WBC 7.41 6.71 (4.8-10.8) K/ul RBC 3.61 L 3.36 L (4.70-6.10) M/uL Hgb 11.6 L 10.8 L (14.0-18.0) g/dl Hct 36.1 L 34.4 L (42.0-52.0) % Plt Count 116 L 98 L (130-400) K/uL Neut # (Auto) 5.71 (1.40-6.50) K/uL Lymph # (Auto) 0.75 L (1.20-3.40) K/uL [place] # (Auto) 0.73 H (0.11-0.59) K/uL Eos # (Auto) 0.14 (0.00-0.50) K/uL Baso # (Auto) 0.05 (0.00-0.20) K/uL Comprehensive Metabolic Panel 04/09/23 04/10/23 Range/Units 16:47 03:39 Sodium 139 140 (136-145) mmol/L Potassium 4.1 4.3 (3.5-5.1) mmol/L Chloride 108 H 109 H (98-107) mmol/L Carbon Dioxide 26 25 (21-32) mmol/L BUN 32 H 30 H (6-23) mg/dl Creatinine 1.43 H 1.36 (0.6-1.4) mg/dl Glucose 115 H 103 H (70-99(Fasting)) mg/dl Calcium 9.4 9.1 (8.6-10.3) mg/dl AST 19 (13-39) U/L ALT 15 (7-52) U/L Alkaline Phosphatase 67 (34-104) U/L Total Protein 6.8 (6.0-8.3) gm/dl Albumin 4.0 (3.4-5.0) gm/dl Intake and Output 04/09/23 04/10/23 04/10/23 22:59 06:59 14:59 Intake Total 120 / 120 0 / 120 100 / 100 Output Total 200 / 700 500 / 700 125 / 125 Balance -80 / -580 -500 / -580 -25 / -25 Intake: Oral 120 / 120 0 / 120 100 / 100 Output: Urine 200 / 700 500 / 700 125 / 125 Other: Weight 69.4 kg 68.8 kg Weight Measurement Method Built in [facility] Built in [facility]
--- NOTE | 2023-04-10 15:11 | Discharge Summary ---
Date of Service April 10, 2023 Admission HPI Per Admitting Provider 83 yo M with hx of HTN, BPH, renal calculi, osteoporosis, low back pain, hx of SBO, and cystitis, now presents from [facility] where he was found to be in complete heart block. Patient was seen in [facility] for acupuncture, for his chronic low back pain today. He reports that for the past week, has been having dizziness and shortness of breath on exertion when walking or going up the stairs. He says he is very active, and walks regularly. He would get dizzy and flushed several times, and so he would have to stop and rest, then it would resolve. He says he never experienced any chest pain however after walking up the stairs he would feel some fullness in his chest. He felt that it was possibly from his anemia, as he is known to have iron deficiency anemia. He did contact his primary care physician, and actually obtained blood work yesterday. He has not heard back yet from them regarding results. When he was at the [facility] for acupuncture, he was noted that his pulse was low, and therefore ECG was obtained there, and concerning for heart block. Patient was then sent by ambulance to the ER at [facility]. Currently patient is lying in bed, in no acute distress. Overall he feels well. Denies any chest pain palpitations, feeling dizzy or short of breath. Denies any recent illness, denies fevers chills, denies any cough. Denies abdominal pain nausea vomiting, or headache. Admission Exam Per Admitting Provider Constitutional: WD/WN, vitals as above Eyes: PERRL, conjunctivae normal, anicteric sclerae ENMT: external ear and nose normal, oropharynx normal Neck: trachea midline, no thyromegaly Respiratory: Auscultation: + rhonchi; no wheezes Cardiovascular: bradycardic, no murmurs Chest (Breasts): Chest: normal inspection of chest Additional Comments: pacer pads applied Gastrointestinal (Abdomen): normal bowel sounds, soft, nontender Musculoskeletal: extremities motor strength 5/5 Skin: no rashes, warm and dry Neurologic: PERRL, EOMI, no face palsy, no dysarthria, moves extremities Psychiatric: A+Ox3, euthymic affect Lymphatic: no lymphedema Principal Diagnosis Heart block s/p pacemaker placement Discharge Exam Constitutional: WD/WN, vitals as above Eyes: PERRL, conjunctivae normal, anicteric sclerae ENMT: external ear and nose normal, oropharynx normal Neck: trachea midline, no thyromegaly Respiratory: Auscultation: + rhonchi; no wheezes Cardiovascular: bradycardic, no murmurs Chest (Breasts): Chest: normal inspection of chest Additional Comments: s/p PPM placement today Gastrointestinal (Abdomen): normal bowel sounds, soft, nontender Musculoskeletal: no cyanosis or clubbing, extremities motor strength 5/5 Skin: no rashes, warm and dry Neurologic: PERRL, EOMI, no face palsy, no dysarthria Psychiatric: A+Ox3, euthymic affect Lymphatic: no lymphedema Discharge Data Allergies Allergy/AdvReac Type Severity Reaction Status Date / Time No Known Allergies Allergy Verified 04/09/23 17:38 Consultations 04/09/23 17:25 ED Decision to Admit Stat 04/09/23 17:27 Consult Cardiology Routine Procedures Performed Operation Date: 04/10/23 08:00 Actual Procedures p Pacer with A/V Leads (Dual) - Kirti Armendariz DO s Venogram, Unilateral - Kirti Armendariz DO s Bundle of his Recording - Kirti Armendariz DO Ordered Studies 04/10/23 07:00 EP Lab Images for PACS ONCE Hospital Course (1) Heart block: - reports dizziness, dyspnea on exertion/ walking - complete heart block on ECG - Lyme panel - negative - Cardiology consulted, s/p PPM today 83-year-old male with symptomatic third-degree AV block status post dual-chamber pacemaker implantation today. Recovering as expected without pneumothorax per chest x-ray. Postprocedural activity restrictions as per electrophysiology. Patient understands he may not drive today. Review resting 2D transthoracic echocardiogram when available. No further inpatient cardiac testing or intervention recommended at this time. Wound check and pacemaker interrogation in [address] [facility]. Follow-up with primary care or pulmonary medicine regarding pulmonary nodules. No further inpatient cardiac testing or intervention recommended at this time. Patient may be discharged home from cardiovascular perspective. (2) HTN (hypertension), benign: - not on any medications at this time - monitor BP (3) BPH (benign prostatic hyperplasia): - on flomax, finasteride, oxybutynin (4) Low back pain: - cont. lidocain patch, tylenol - just had acupuncture treatment Iron def. anemia - current Hgb 11.6 - on iron supplement Abnormal CXR - no cough, fever, or any resp. symptoms at this time - pt reports having pna and being in ICU in 2017 after his urologic procedure - follows w/ pulmonary med. as outpt - recommend follow up Total Time Total Time Spent Total Time Spent (In Minutes): 40 Discharge Plan Discharge Items Patient Disposition: Home - Self-Care Reason For Visit: HEART BLOCK Discharge Diagnosis: Heart block s/p pacemaker placement Activity: As commented below Activity Comment: do not raise the left elbow over the left shoulder for 1 month Lifting: No more than 10 pounds Lifting Comment: do not lift more than 10 pounds with the left arm for 2 weeks Bathing: Keep incision dry Bathing Comment: keep dressing on & dry until wound check next week Driving/Machine Use: Resume 1 day after discharge Non-emergency contact: Primary Care Provider and Streetsweeper Operator Call non-emergency contact if: you have any medication questions and your symptoms worsen Follow-up/Referrals: Kirti Armendariz DO [Physician] - (Date & Time 04/20/2023 10:30 AM Provider Roland Frost Department Cardiology, [place] ) [facility] [Primary Care Provider] - Diet: Regular Addtl Attending Provider Instructions: Follow up with your primary care physician and cardiology. Follow up with your primary care doctor within 1-2 weeks. Device and wound check at [facility] on 04/20/2023 at 10:30am. It is also recommended that you follow up with your preflight inspector regarding pulmonary nodules/ pulmonary scarring. Pending Studies at Discharge: Yes Studies:: final urine cultx Stand-Alone Forms: My Event [employer], Smoking Cessation Medications and DC Order Prescriptions: Continued oxybutynin chloride 15 mg tablet extended release 24hr 15 mg PO DAILY tamsulosin 0.4 mg capsule 0.4 mg PO DAILY potassium citrate 10 mEq (1,080 mg) tablet extended release 10 meq PO DAILY ferrous sulfate 325 mg (65 mg iron) Tablet 325 mg PO DAILY lidocaine 5 % adhesive patch,medicated 1 patch transdermal DAILY PRN (Reason: Pain) folic acid 1 mg Tablet 1 mg PO DAILY finasteride 5 mg tablet 5 mg PO DAILY cholecalciferol (vitamin D3) [Vitamin D3] 25 mcg (1,000 unit) Capsule 25 mcg PO DAILY diclofenac sodium 1 % gel 2 g TOPICAL DIRECTED PRN (Reason: Pain) lidocaine 5 % ointment 1 applic topical DIRECTED PRN (Reason: Pain) Discharge Orders: Discharge Order (Routine); Ordered 04/10/23 Ordered By: Kaden Meek/Other Patient Handouts: Pacemakers, Living with a Pacemaker Admission Data Admit Date/Time: 04/09/23 17:28 Attending Provider: Kaden Padron Admit Provider: Kaden Padron Primary Care Provider: [facility] Other Providers: Kaden Padron; Tavon Wright
[2023-04-10] MEDS: ACETAMINOPHEN 325 MG TAB PO PRN (15:40)
--- OUTSIDE RECORDS SUMMARY | 2023-04-11 03:48 | External Medical Summary | Summary of Care ---
Author Name Unknown Organization [facility] Address [address] [facility] [place] [address] Phone [phone] Care Team Providers Care Verifying Machine Operator Name Role Phone Rj Fitch MD Primary Care Provider [phone] Reason for Visit * Reason Onset Date Comments Specimen Urine 10/27/2022 Encounter Details Date Type Department Care Team Description 10/27/2022 Telephone [facility] [address] [place] [address] Devika Acevedo PA-C [address] [place] [address] Specimen Urine Allergies No known active allergiesdocumented as of this encounter (statuses as of 10/27/2022) Medications Medication Sig Dispensed Refills Start Date End Date Status tamsulosin (FLOMAX) 0.4 MG Capsule daily. 0 Active finasteride (PROSCAR) 5 MG Tablet daily. 0 Active potassium citrate ER (UROCIT-K) 10 MEQ (1080 MG) TBCR daily. 0 Active Vitamin D, Cholecalciferol, 400 units CAPSIndications:2 tabs daily Indications: 2 tabs daily 0 Active ferrous sulfate (FEOSOL) 325 (65 FE) MG TabletIndications:t wice daily 2 Tablets daily with breakfast . 0 Active folic acid 1 MG Tablet daily. 0 Active Ascorbic Acid (VITAMIN C) 100 MG Tablet Take 100 mg by mouth daily. 0 Active loperamide (IMODIUM) 2 MG Capsule as needed. 0 01/25/2019 Active acetaminophen (TYLENOL) 500 MG Tablet Take 500 mg by mouth every 6 hours as needed for Pain. 0 Active Naproxen 500 MG Oral Tablet (NAPROSYN) Take 500 mg by mouth 2 times a day with morning and evening meals. 0 Active traMADol HCl 50 MG Oral Tablet (Ultram) Take by mouth 50 mg every 6 hours as needed for Pain, Mild. Last dose 2300 on 06/09/21 0 Active Gabapentin 300 MG Oral Capsule (Neurontin) Take by mouth 300 mg in the morning AND 300 mg at noon AND 300 mg before bedtime. 0 Active Lactobacillus Probiotic Oral Tablet Take by mouth 1 Tablet daily . 0 Active Sildenafil Citrate 100 MG Oral Tablet Take by mouth 100 mg daily as needed . 0 03/20/2020 Active Clotrimazole 1 % External Cream (Lotrimin) Apply topically to affected area 1 Dose daily as needed . 0 05/22/2021 Active Triamcinolone Acetonide 0.1 % External Cream (Aristocort) Apply topically to affected area 1 Dose daily as needed . 0 05/21/2021 Active hydroCHLOROthiazide 25 MG Oral Tablet (Hydrodiuril) Take by mouth 12.5 mg in the morning. 0 05/16/2021 Active Ciprofloxacin HCl 500 MG Oral Tablet (Cipro)Indications: Dysuria,Acute cystitis with hematuria Take 1 Tablet by mouth in the morning and 1 Tablet before bedtime. Do all this for 10 days. 20 Tablet 0 10/24/2022 11/03/2022 Active documented as of this encounter (statuses as of 10/27/2022) Active Problems Problem Noted Date Small bowel obstruction 06/11/2021 Hypertension 06/11/2021 Low back pain 06/11/2021 Osteoporosis 06/11/2021 BPH (benign prostatic hyperplasia) 05/20 Acute cystitis without hematuria 021 documented as of this encounter (statuses as of 10/27/2022) Resolved Problems Problem Noted Date Resolved Date Bilateral inguinal hernia without obstruction or gangrene 02/18/2019 03/08/2019 documented as of this encounter (statuses as of 10/27/2022) Immunizations Name Administration Dates Next Due COVID-19 mRNA, LNP-s, No Pre serve, 2-Dose Series (Moderna) 12/17/2020,03/20/2020,02/22/2020 H1N1 2009 Influenza, IM 03/12/2009 Pneumococcal Conjugate Vacc, 13 Valent (Prevnar) 12/13/2014 Pneumococcal Polysaccharide PPV23 (Pneumovax) 02/11/2018 Seasonal Influenza Virus Vac cine, Unspecified Formulation 12/09/2017,10/10/2009,11/10/2007,11/09 Seasonal Influenza, Quadriva lent, No Preserve, IM 11/20/2020,12/02/2019 Seasonal Influenza, Split, I IV3, With Preserve, Inj 11/24/2018,12/02/2017,11/10/2016,11/26,12/13/2014 TD - Tetanus/Diptheria (ADULT) 02/09/2002 TDAP (age 10 and older)(Boostrix) 12/07/2015 Varicella Zoster Vaccine (Adult) 06/11/2011 Zoster Vaccine Recombinant (Shingrix) 04/12/2018 ,02/11/2018 documented as of this encounter Social History Tobacco Use Types Packs/Day Years Used Date Smoking Tobacco: Never Smokeless Tobacco: Never Alcohol Use Standard Drinks/Week Comments Yes 0 (1 standard drink = 0.6 oz pur e alcohol) monthly Sex Assigned at Date Recorded Not on file Job Start Date Occupation Industry Not on file Not on file Not on file documented as of this encounter Functional Status Functional Status Response Date of Assess ment Are you deaf or do you have serious difficulty h earing? No 06/10/2021 Are you blind or do you have serious difficulty seeing, even when wearing glasses? No 06/10/2021 Do you have serious difficul ty walking or climbing stairs? (5 years old or older) No 06/10/2021 Do you have difficulty dress ing or bathing? (5 years old or older) No 06/10/2021 Because of a physical, menta l, or emotional condition, do you have difficulty doing errands alone such as visiting a doctor s office or shopping? (15 years old or older) No 06/11/19 Cognitive Status Response Date of Assessm ent Because of a physical, menta l, or emotional condition, do you have serious difficulty concentrating, remembering, or making decisions? (5 years old or older No 06/10/2021 documented as of this encounter Miscellaneous Notes * Telephone Encounter - Devika M Acevedo, PA-C - 10/27/2022 1:13 PM EDT Urine culture was negative. Patient should follow up with his urologist as needed. documented in this encounter Plan of Treatment Scheduled Procedures Name Priority Associated Diagnoses Date/Ti me COLONOSCOPY FLEXIBLE PROXIMA L DIAGNOSTIC Recall History of colonic polyps Health Maintenance Due Date Last Done Comments Depression Screening 1952 Albumin/Creatinine Ratio 1958 VITAMIN D LEVEL ONCE IN A LIFETIME-USE SMARTSET# 53986 1980 DXA Scan 1990 COVID-19 Vaccine (4 - Moderna series) 02/11/2021 12/17/2020, 03/20/2020, 02/22/2020 *BISPHONATE OR OTHER ACCEPTABLE MEDICATION NEEDED FOR OSTEOPOROSIS (REFER TO SMARTSET #1146) 06/14/2021 COLONOSCOPY-EVERY 5 YRS AGES 18-100 01/30/2022 01/30/2017, 01/30/2017 GFR 06/13/2022 06/13/2021, 04/2021, 06/10/2021, Additional history exists Influenza Vaccine (FLU shot) (#1) 2022 11/20/2020, 12/02/2019, 11/24/2018, Additional history exists DTaP,Tdap,and Td Vaccines (2 - Td or Tdap) 12/06/2025 12/07/2015, 02/09/2002 Pneumococcal Vaccine: 65+ Years Completed 02/11/2018, 12/13/2014 Zoster Vaccines Completed 04/12/2018, 04/2018, 06/11/2011 GARDASIL-HPV IMMUNIZATION SERIES Aged Out No longer eligible based on patient's age to complete this topic Hepatitis B Aged Out No longer eligi ble based on patient's age to complete this topic MENINGOCOCCAL (MENACTRA/MENVEO) Aged Out No longer eligible based on patient's age to complete this topic documented as of this encounter Medical Devices Not on filedocumented as of this encounter Advance Directives Latest Code Status on File Code Status Date Activated Date Inactivated Comments Full Code 06/10/2021 12:25 PM 06/13/2021 11:48 PM Question Answer Comments Discussion of Advance Direct ronaldo occurred with: Not Discussed Care Teams Verifying Machine Operator Relationship Specialty Start Date End Date Rj Fitch MD [address] [facility] [place] [id number] PCP - General Internal Medicine 01/09/17 documented as of this encounter
--- OUTSIDE RECORDS SUMMARY | 2023-04-11 03:48 | External Medical Summary | Summary of Care ---
Author Name Unknown Organization [facility] Address [address] [facility] [place] [address] Phone [phone] Care Team Providers Care Gypsum Calciner Name Role Phone Rj Fitch MD Primary Care Provider [phone] Reason for Visit * Reason Onset Date Comments Specimen Urine 10/27/2022 Encounter Details Date Type Department Care Team Description 10/27/2022 Telephone [facility] [address] [place] [address] Devika Acevedo PA-C [address] [place] [address] Specimen Urine Allergies No known active allergiesdocumented as of this encounter (statuses as of 10/29/2022) Medications Medication Sig Dispensed Refills Start Date [...] as of this encounter (statuses as of 10/29/2022) Active Problems Problem Noted Date Small bowel obstruction 06/11/2021 Hypertension 06/11/2021 Low back pain 06/11/2021 Osteoporosis 06/11/2021 BPH (benign prostatic hyperplasia) 05/20 Acute cystitis without hematuria 021 documented as of this encounter (statuses as of 10/29/2022) Resolved Problems Problem Noted Date Resolved Date Bilateral inguinal hernia without obstruction or gangrene 02/18/2019 03/08/2019 documented as of this encounter (statuses as of 10/29/2022) Immunizations Name Administration Dates Next Due COVID-19 [...] encounter Miscellaneous Notes * Telephone Encounter - Kelli Minium, SOLDERER ASSEMBLER - 10/29/2022 12:19 PM EDT Left generic message on answering machine asking pt to return our call. * Telephone Encounter - Devika Acevedo PA-C - 10/27/2022 1:13 PM EDT Urine [...] D LEVEL ONCE IN A LIFETIME-USE SMARTSET# 42646 1980 DXA Scan 1990 COVID-19 Vaccine (4 [...] ronaldo occurred with: Not Discussed Care Teams Gypsum Calciner Relationship Specialty Start Date End Date Rj Fitch MD [address] [facility] [place] [id number] PCP - General Internal Medicine 01/09/17 documented as of this encounter
--- OUTSIDE RECORDS SUMMARY | 2023-04-11 03:48 | External Medical Summary | Summary of Care ---
Author Name Unknown Organization [facility] Address [address] [facility] [place] [address] Phone [phone] Care Team Providers Care Crime Scene Evidence Technician Name Role Phone Rj Fitch MD Primary Care Provider [phone] Reason for Visit * Reason Onset Date Comments Specimen Urine 10/27/2022 Encounter Details Date Type Department Care Team Description 10/27/2022 [facility] [address] [place] [address] Devika Acevedo PA-C [address] [place] [address] Specimen Urine Allergies No [...] Notes * Telephone Encounter - Kelli Minium, SUPERVISOR CONTINUOUS WELD PIPE MILL - 10/29/2022 4:49 PM EDT Pt did not return call...upon review of chart pt has viewed the results and encounter. * Telephone Encounter - Kelli Azevedo LPN - 10/29/2022 12:19 PM EDT Left generic [...] D LEVEL ONCE IN A LIFETIME-USE SMARTSET# 77158 1980 DXA Scan 1990 COVID-19 Vaccine (4 - Moderna series) 02/11/2021 12/17/2020, 03/20/2020, 02/22/2020 *BISPHONATE OR OTHER ACCEPTABLE MEDICATION NEEDED FOR OSTEOPOROSIS (REFER TO SMARTSET #1146) 06/14/2021 COLONOSCOPY-EVERY 5 YRS AGES 18-100 01/30/2022 01/30/2017, 01/30/2017 GFR 06/13/2022 06/13/2021, 0504/2021, 06/10/2021, Additional history exists Influenza Vaccine (FLU [...] ronaldo occurred with: Not Discussed Care Teams Crime Scene Evidence Technician Relationship Specialty Start Date End Date Rj Fitch MD [address] [facility] [place] [address] PCP - General Internal Medicine 01/09/17 documented as of this encounter
--- OUTSIDE RECORDS SUMMARY | 2023-04-11 03:48 | External Medical Summary | Summary of Care ---
Author Name Unknown Organization [facility] Address [address] [place] [facility] [place] [address] Phone [phone] Care Team Providers Care Courtesy Booth Cashier Name Role Phone Rj Fitch MD Primary Care Provider [phone] Reason for Visit * Reason Onset Date Comments Test Results 10/30/2022 Encounter Details Date Type Department Care Team Description [facility]/30[facility] [place] [place] [address] [facility] [address] [place] [address] Devika Acevedo PARosaC [address] [place] [id number] Test Results Allergies No known active allergiesdocumented as of this encounter (statuses as of 10/30/2022) Medications Medication Sig Dispensed Refills Start Date [...] as of this encounter (statuses as of 10/30/2022) Active Problems Problem Noted Date Small bowel obstruction 06/11/2021 Hypertension 06/11/2021 Low back pain 06/11/2021 Osteoporosis 06/11/2021 BPH (benign prostatic hyperplasia) 05/20 Acute cystitis without hematuria 021 documented as of this encounter (statuses as of 10/30/2022) Resolved Problems Problem Noted Date Resolved Date Bilateral inguinal hernia without obstruction or gangrene 02/18/2019 03/08/2019 documented as of this encounter (statuses as of 10/30/2022) Immunizations Name Administration Dates Next Due COVID-19 [...] encounter Miscellaneous Notes * Telephone Encounter - Melanie Sanches RT - 10/30/2022 1:45 PM EDT I identified pt by name and , verified by patient. Pt has been informed of below message and verbalized understanding. documented in this encounter Plan of Treatment Scheduled Procedures Name Priority Associated Diagnoses Date/Ti me COLONOSCOPY FLEXIBLE PROXIMA L DIAGNOSTIC Recall History of colonic polyps Health Maintenance Due Date Last Done Comments Depression Screening 1952 Albumin/Creatinine Ratio 1958 VITAMIN D LEVEL ONCE IN A LIFETIME-USE SMARTSET# 31014 1980 DXA Scan 1990 COVID-19 Vaccine (4 [...] ronaldo occurred with: Not Discussed Care Teams Courtesy Booth Cashier Relationship Specialty Start Date End Date Rj Fitch MD [address] [facility] [place] [address] PCP - General Internal Medicine 01/09/17 documented as of this encounter
--- OUTSIDE RECORDS SUMMARY | 2023-04-11 03:49 | External Medical Summary ---
Author Name Unknown Address Unknown Organization K01:[facility] [place] [address] [place] [id number] Laboratory Report Ordering Provider Test Date Status HIRA GALE 10/24/2022 14:39:03 Final Observation Date Value Abnormality Reference (Units) Status Bacteria identified in Specimen by Culture 10/24/2022 14:39:03 No significant growth Final Test: Culture, Urine, Quanti tative
Specimen Source: Urine, Clean Catch
Specimen Type: Urine
Specimen Date: 10/24/2022 2:39 PM
Result Date: 10/26/2022 8:13 AM
Result Status: Final result
Resulting Lab: [facility]
[address]
[place] [facility]

CULTURE

No significant growth

null Performing Location [facility] [place] [address] [facility] [address]
--- OUTSIDE RECORDS SUMMARY | 2023-04-11 03:49 | External Medical Summary | Summary of Care ---
Author Name Unknown Organization [facility] Address [address] [place] [address] Phone [phone] Care Team Providers Care Marketing Designer Name Role Phone Rj Fitch MD Primary Care Provider [phone] Reason for Visit * Reason Comments Urinary Tract Infection Symptoms Dysuria x 3 days with urinary frequency Encounter Details Date Type Department Care Team Description 10/24/2022 Convenient Care Visit [facility] [address] [address] [place] [address] Devika Acevedo [facility] [address] [place] [place] [id number] Acute cystitis with hematuria*; Dysuria Allergies No known active allergiesdocumented as of this encounter (statuses as of 10/24/2022) Medications Medication Sig Dispensed Refills Start Date [...] as of this encounter (statuses as of 10/24/2022) Active Problems Problem Noted Date Small bowel obstruction 06/11/2021 Hypertension 06/11/2021 Low back pain 06/11/2021 Osteoporosis 06/11/2021 BPH (benign prostatic hyperplasia) 05/20 Acute cystitis without hematuria 021 documented as of this encounter (statuses as of 10/24/2022) Resolved Problems Problem Noted Date Resolved Date Bilateral inguinal hernia without obstruction or gangrene 02/18/2019 03/08/2019 documented as of this encounter (statuses as of 10/24/2022) Immunizations Name Administration Dates Next Due COVID-19 [...] Date Smoking Tobacco: Never Smokeless Tobacco: Never Tobacco Cessation:Counseling Given: Not Answered Alcohol Use Standard Drinks/Week Comments Yes 0 (1 standard drink = 0.6 oz pur e alcohol) monthly Sex Assigned at Date Recorded Not on file Job Start Date Occupation Industry Not on file Not on file Not on file documented as of this encounter Last Filed Vital Signs Vital Sign Reading Time Taken Comments Blood Pressure 142/80 10/24/2022 2:24 PM EDT Pulse 100 10/24/2022 2:24 PM EDT Temperature 36.7 C (98 F) 10/24/2022 2:24 PM EDT Respiratory Rate 16 10/24/2022 2:24 PM EDT Oxygen Saturation 95% 10/24/2022 2:24 PM EDT Inhaled Oxygen Concentration - - Weight 63 kg (139 lb) 10/24/2022 2:24 PM EDT Height 175.3 cm (5' 9") 10/24/2022 2:24 PM EDT Body Mass Index 20.53 10/24/2022 2:24 PM EDT documented in this encounter Functional Status Functional Status Response [...] No 06/10/2021 documented as of this encounter Progress Notes * Devika Acevedo PA-C - 10/24/2022 2:46 PM EDT Subjective Kirt Coelho is a 82 year old male. Chief Complaint Patient presents with Urinary Tract Infection Symptoms Dysuria x 3 days with urinary frequency HPI: Urinary Tract Infection Symptoms This is a new problem. The current episode started in the past 7 days. The problem occurs every urination. The problem has been gradually worsening. The quality of the pain is described as burning. There has been no fever. Associated symptoms include frequency and urgency. Pertinent negatives include no chills, nausea or vomiting. His past medical history is significant for kidney stones. PMH: Patient Active Problem List Diagnosis Code Acute cystitis without hematuria N30.00 Small bowel obstruction (HCC) K56.609 BPH (benign prostatic hyperplasia) N40.0 Hypertension I10 Low back pain M54.50 Osteoporosis M81.0 Current Outpatient Medications Medication Sig Dispense Refill tamsulosin (FLOMAX) 0.4 MG Capsule daily. finasteride (PROSCAR) 5 MG Tablet daily. (Patient not taking: Reported on 06/27/2021) potassium citrate ER (UROCIT-K) 10 MEQ (1080 MG) TBCR daily. (Patient not taking: Reported on 06/27/2021 ) Vitamin D, Cholecalciferol, 400 units CAPS Indications: 2 tabs daily ferrous sulfate (FEOSOL) 325 (65 FE) MG Tablet 2 Tablets daily with breakfast . folic acid 1 MG Tablet daily. Ascorbic Acid (VITAMIN C) 100 MG Tablet Take 100 mg by mouth daily. loperamide (IMODIUM) 2 MG Capsule as needed. (Patient not taking: Reported on 06/27/2021 ) acetaminophen (TYLENOL) 500 MG Tablet Take 500 mg by mouth every 6 hours as needed for Pain. Naproxen 500 MG Oral Tablet (NAPROSYN) Take 500 mg by mouth 2 times a day with morning and evening meals. traMADol HCl 50 MG Oral Tablet (Ultram) Take by mouth 50 mg every 6 hours as needed for Pain, Mild.Last dose 2300 on 06/09/21 Gabapentin 300 MG Oral Capsule (Neurontin) Take by mouth 300 mg in the morning AND 300 mg at noon AND 300 mg before bedtime. Lactobacillus Probiotic Oral Tablet Take by mouth 1 Tablet daily . Sildenafil Citrate 100 MG Oral Tablet Take by mouth 100 mg daily as needed . Clotrimazole 1 % External Cream (Lotrimin) Apply topically to affected area 1 Dose daily as needed . Triamcinolone Acetonide 0.1 % External Cream (Aristocort) Apply topically to affected area 1 Dose daily as needed . hydroCHLOROthiazide 25 MG Oral Tablet (Hydrodiuril) Take by mouth 12.5 mg in the morning. (Patient not taking: Reported on 06/27/2021 ) No current facility-administered medications for this visit. Review of patient's allergies indicates: No Known Allergies Review of Systems Constitutional: Negative for chills and fever. Gastrointestinal: Negative for nausea and vomiting. Genitourinary: Positive for dysuria, frequency and urgency. Objective BP 142/80 | Pulse 100 | Temp 36.7 C (98 F) (Tympanic) | Resp 16 | Ht 1.753 m (5' 9") | Wt 63 kg (139 lb) | SpO2 95% | BMI 20.53 kg/m | BSA 1.75 m Physical Exam Constitutional: General: He is not in acute distress. Appearance: Normal appearance. He is not ill-appearing, toxic-appearing or diaphoretic. Cardiovascular: Rate and Rhythm: Normal rate and regular rhythm. Pulmonary: Effort: Pulmonary effort is normal. Breath sounds: Normal breath sounds. Abdominal: General: Abdomen is flat. There is no distension. Palpations: Abdomen is soft. Tenderness: There is no right CVA tenderness, left CVA tenderness, guarding or rebound. Skin: General: Skin is warm and dry. Neurological: General: No focal deficit present. Mental Status: He is alert. ASSESSMENT/PLAN: Acute cystitis with hematuria (Primary) - Ciprofloxacin HCl 500 MG Oral Tablet (Cipro); Take 1 Tablet by mouth in the morning and 1 Tablet before bedtime. Do all this for 10 days. Dysuria - URINALYSIS, POINT OF CARE (ENTER/EDIT) - CULTURE, URINE, QUANTITATIVE - Ciprofloxacin HCl 500 MG Oral Tablet (Cipro); Take 1 Tablet by mouth in the morning and 1 Tablet before bedtime. Do all this for 10 days. Push lots of water. Follow with urology as needed To the ER prn if symptoms worsen Devika Acevedo PA-C documented in this encounter Nursing Notes * Kelli Azevedo LPN - 10/24/2022 2:27 PM EDT Kirt Coelho is a 82 year old male who presents to walk-in clinic today complaining of Chief Complaint Patient presents with Urinary Tract Infection Symptoms Dysuria x 3 days with urinary frequency Tried: nothing Pt accompanied by: self documented in this encounter Plan of Treatment Pending Results Name Type Priority Associated Diagnoses Date /Time CULTURE, URINE, QUANTITATIVE Lab Routine Dysuria 10/24/2022 2:39 PM EDT Scheduled Procedures Name Priority Associated Diagnoses Date/Ti me COLONOSCOPY FLEXIBLE PROXIMA L DIAGNOSTIC Recall History of colonic polyps Health Maintenance Due Date Last Done Comments Depression Screening 1952 Albumin/Creatinine Ratio 1958 VITAMIN D LEVEL ONCE IN A LIFETIME-USE SMARTSET# [id number] 1980 DXA Scan 1990 COVID-19 Vaccine (4 [...] Not on filedocumented as of this encounter Procedures Procedure Name Priority Date/Time Associated Diagnosis Comments URINALYSIS, POINT OF CARE (ENTER/EDIT) Routine 10/24/2022 2:34 PM EDT Dysuria documented in this encounter Results * (ABNORMAL) URINALYSIS, POINT OF CARE (ENTER/EDIT) (10/24/2022 2:34 PM EDT) Color, Urine Yellow Yellow or Light Yellow Clarity, Urine Cloudy Clear Glucose, Urine Negative Negative mg/dL Bilirubin, Urine Negative Negative Ketone, Urine Negative Negative mg/dL Specific [place], Urine 1.025 1.003 - 1.030 Blood, Urine Moderate Negative pH, Urine 5.5 5.0 - 7.5 units Protein, Urine >=300 Negative mg/dL Urobilinogen, Urine 0.2 0.2 - 1.0 mg/dL Nitrite, Urine Negative Negative Esterase, Urine Small Negative Urine 10/24/2022 2:34 PM EDT Devika Acevedo PA-C LAB POINT OF C ARE TEST ENTER/EDIT ORDERABLES documented in this encounter Visit Diagnoses Diagnosis Acute cystitis with hematuria- Primary Acute cystitis Dysuria documented in this encounter Advance Directives Latest Code Status on File Code Status Date Activated Date Inactivated Comments Full Code 06/10/2021 12:25 PM 06/13/2021 11:48 PM Question Answer Comments Discussion of Advance Direct ronaldo occurred with: Not Discussed Care Teams Marketing Designer Relationship Specialty Start Date End Date Rj Fitch MD [id number] [facility] [place] [id number] PCP - General Internal Medicine 01/09/17 documented as of this encounter
--- NOTE | 2023-04-11 10:11 | Electrocardiogram Report ---
Test Reason : Blood Pressure : / mmHG Vent. Rate : 047 BPM Atrial Rate : 047 BPM P-R Int : 000 ms QRS Dur : 152 ms QT Int : 492 ms P-R-T Axes : 000 -28 -13 degrees QTc Int : 435 ms Sinus rhythm with 2:1 A-V block with occasional Premature ventricular complexes Right bundle branch block Abnormal ECG When compared with ECG of 09-APR-2023 16:42, Probably no change Confirmed by Jey Sheets ([id number]) on 04/11/2023 10:11:07 AM Referred By: [facility] Confirmed By:Jey Sheets
--- NOTE | 2023-04-13 11:14 | Operative Report ---
Post Operative Report DICTATED BY:Kirti Armendariz D.O. DATE OF PROCEDURE: 04/10/2023 PREOPERATIVE DIAGNOSES: Complete heart block POSTOPERATIVE DIAGNOSIS: Same PROCEDURE: A dual-chamber rate responsive permanent pacemaker and intracardiac electrogram His bundle recordings, along with a peripheral venogram under fluoroscopic guidance. SURGEON: Kirti Armendariz DO ASSISTANTS: None. ANESTHESIA: Monitored conscious sedation administered under my supervision by Alexandrea Martines. Start time 08:14, end time 09:27, a total of 3 mg of Versed and 75 mcg of fentanyl. INTRAVENOUS FLUIDS: 322 mL. CONTRAST: 32 mL. ANTIBIOTICS: 1 grams of Ancef. ADDITIONAL MEDICATIONS: 150mcg IV nitroglycerin BLOOD LOSS: 50 mL. URINE OUTPUT: Not applicable. SPECIMENS: None. FINDINGS: See below. DRAINS: None. COMPLICATIONS: None. CONDITION: Stable. INDICATIONS: This is a 83-year-old gentleman who has a past medical history HTN, BPH, iron deficiency anemia. [facility] to have [facility] so he was referred to ER. He was admitted with [facility] and recommended a pacemaker prior to hospital discharge. . CONSENT: Consent was obtained prior to the patient going into the electrophysiology lab. The patient was informed of the risks, benefits, and alternatives to the procedure. Risks include, but not limited to, sudden cardiac , cardiac arrhythmias, cerebrovascular accident, myocardial infarction, injury to his blood vessels, chamber of the heart and lung, bleeding and infection. The patient understood these risks and agreed to the procedure as planned. Informed consent was obtained. DESCRIPTION OF PROCEDURE: The patient was brought into electrophysiology lab in a fasting state. He was connected to continuous cardiac monitoring. A timeout was performed to ensure the patient's identity and procedure correctly. He was prepped and draped in the left infraclavicular space in normal surgical standard fashion. Monitored conscious sedation was given throughout the procedure for the patient's comfort level. [place] precautions were maintained throughout the procedure. Prophylactic antibiotics were given prior to incision. A 20 mL of 1% lidocaine and bupivacaine mixture were given in the left deltopectoral groove. An incision was made in the left deltopectoral groove. Blunt dissection was performed down to the pectoralis muscle. Then, using blunt dissection over the pectoralis muscle within the pectoral fascia, a pacemaker pocket was created. Then, a peripheral venogram was performed to identify the axillary vein. Venous axillary access was obtained through a needlestick; however the vein spasmed and I was having difficulty getting access as seen on a second peripheral venogram. Then 150mcg of IV nitroglycerin were given; then a third peripheral venogram was performed which showed the axillary/subclavian vein opened back up. So I was able to get access and a guidewire was inserted without any resistance. A 6-Montenegrin sheath was inserted over the guidewire without any resistance. Dilator was removed and a second guidewire was inserted through the sheath to allow for retained venous access. Then the 6 [place] sheath was flushed and reinserted over the guidewire. Then the sheath was advanced over one of the guidewires. Then the dilator and guidewire were removed. Then the right atrial pacing lead was temporarily placed into the RV apex under fluoroscopic guidance for back up pacing. Then a 9 [place] sheath was inserted over the retained guidewire. The guidewire and dilator were removed. Then, the CPS Lead Radiation Therapist 3D medium sheath was inserted through the 9-Montenegrin sheath over a Glidewire into the right ventricle. The Glidewire and dilator were removed. Then, the left bundle lead was advanced through the sheath and intracardiac electrogram His bundle recordings were performed when the camera was in BENNETT 10. Once I found where the His bundle is, see below for results, I then moved the camera to BENNETT 30 and marked where the His bundle was on my fluoroscopy screen. I came down about 2 cm from this in a line that would extend out to the apex and then started coming on pacing. Once I found an area where I had a nice W formed pace complex in my lead V1, I then moved the camera to SURINAMESE 30. Then the helix was extended into the septum. Then the helix locking tool was placed. Then the lead was screwed further into the septum while pacing by giving slow clockwise turns. The paced complex changed to a nice R' in V1 and the pacing stim to peak QRS in V6 was good. I then gave contrast through the sheath to see how far the lead was into the septum and then I slit the CPS Lead Radiation Therapist 3D medium sheath under fluoroscopic guidance and left the 9-Montenegrin sheath in while I positioned the right atrial lead. Then the right atrial lead screw was retracted from the RV apex and was positioned into right atrial appendage under fluoroscopic guidance. There was adequate pacing and sensing thresholds and no diaphragmatic stimulation with high output pacing. The 6-Montenegrin sheath was peeled away and the lead was fixated to the pectoralis muscle using 0 silk suture. The 9-[place]enegrin sheath around the left bundle lead was peeled away and the lead was fixated to pectoralis muscle using 0 silk suture. The pocket was flushed with copious amounts of vancomycin and saline wash and inspected for hemostasis. The leads were then attached to the pulse generator making sure the pins were in appropriate position, passed set screws, and set screws were all tightened. Pulse generator was then placed in the pocket, making sure the leads were lying flat beneath the device. The incision was closed in a 3-layer fashion using 2-0 Vicryl interrupted suture, followed by 3-0 Vicryl interrupted suture, followed by 4-0 Monocryl running stitch. Then a primaseal dressing was placed EQUIPMENT: 1. Pulse generator is a [employer] MRI Model Number [id number] SN: [id number]. 2. Right atrial lead, [employer] SJM Tendril STS [id number] SN: [id number] 3. Left bundle lead, [place] SJM Tendril STS [id number] SN: [id number] INTRAPROCEDURAL FINDINGS: 1. Intracardiac electrogram His bundle recordings, AH is 130 milliseconds, HV is 60 milliseconds. 2. Right atrial lead, P waves 1.7 millivolts, impedance 430 ohms, threshold 0.7 volts at 0.4 milliseconds. 3. Left bundle lead, R waves 6.6 millivolts, impedance 771 ohms, threshold 0.4 volts at 0.4 milliseconds. FINAL MEASUREMENTS THROUGH THE DEVICE: 1. Right atrial lead, P waves >1.9 millivolts, impedance 510 ohms, threshold 0.5 volt at 0.4 milliseconds. 2. Left bundle lead, R waves 8.8 millivolts, impedance 710 ohms, threshold 0.75 volts at 0.4 milliseconds. FINAL PARAMETERS: DDD 60/120, right atrial amplitude 3.5 volts, pulse width 0.4 milliseconds, sensitivity 0.5 millivolts. Left bundle lead amplitude 3.5 volts, pulse width 0.4 milliseconds, sensitivity 2 millivolts. IMPRESSION: Successful dual chamber rate responsive permanent pacemaker under fluoroscopic guidance along with peripheral venogram and intracardiac electrogram His bundle recordings, all under fluoroscopic guidance secondary to complete heart block PLAN: Monitor the patient post-procedure. A 12-lead ECG, chest x-ray. He is not to lift the left elbow or left shoulder for 1 month. He cannot lift more than 10 pounds with the left arm for 2 weeks. He is to keep the dressing on and dry until his wound check next week.
== END 2023-04-10 16:56 | disposition home or self-care (01) | DRG 244 ==
LOC: ED 16:14 → EDINP 17:28 → 1E 17:54